=== PATIENT | female | born 1980 | race Caucasian/White ===

== ENCOUNTER 2018-08-02 13:24 | Inpatient (IN) | payer MEDICAID ==
[~2018-08-02] VITALS: Ht 154.9 cm; Wt 45.4 kg
[2018-08-02 13:36] VITALS: BP 129/68; PULSE 76
[2018-08-02 13:40] VITALS: BP 103/64; PULSE 76
[2018-08-02] MEDS ORDERED: URSO300C3 PO (13:44)
[2018-08-02] MEDS ORDERED: PREN-93 PO (13:44)
[2018-08-02] MEDS ORDERED: HYDR-3029 PO (13:44)
--- NOTE | 2018-08-02 16:56 | HP ---
Date/Time of Note Date/Time of Note DATE: 08/02/18 TIME: 16:54 OB - History Hx of Present Care: Good Care Ultrasounds: Normal mid trimester US Obstetrical Complications: None, Other Medical Complications: None Past Family/Social History * Past Medical, Surgical, Family and Obstetric Histories reviewed from chart. OB Admission Exam Vital Signs Vital Signs Vital Signs Date Temp Pulse Resp B/P (MAP) Pulse Ox O2 O2 Flow FiO2 Time Delivery Rate 08/02/18 98.4 76 103/64 Room Air 13:40 (77) Physical Exam Cervical Dilatation: 1cm Effacement: 75% Station: -1 Heart Rate: 140's Accelerations: Accelerations Present Decelerations: No Decelerations Varibility: Moderate Contractions on Admission: 6-10 Minutes Apart Last 72 hours Lab Results CBC & BMP 08/02/18 14:50 Liver Function Test 08/02/18 14:50 Alanine Aminotransferase (ALT/SGPT) 110 H Albumin 3.5 Alkaline Phosphatase 303 H Aspartate Amino Transf (AST/SGOT) 65 H Direct Bilirubin 0.00 Total Protein 7.0 OB Assessment/Plan Reason for admission: observation Other Assessment: PMH Denies PSH Denies Allergy NKDA Plan: Expectant Management Other plan: IV Hydration Steroids Close Observation BETO LLANOS M.D. Aug 02, 2018 16:56
[2018-08-02 17:30] VITALS: Ht 154.9 cm; Wt 45.4 kg
--- NOTE | 2018-08-02 17:36 | TRIAGE ---
OB Triage Datetime Report Generated by CPN: 08/02/2018 17:36 Datetime: 08/02/2018 16:47 Comments: Report to Phobe RN in labor and delivery Datetime: 08/02/2018 16:40 Labor Evaluation Frequency: 2-5 Monitor Mode: External Duration (sec)2399: 50-70 Quality: Mild Pattern: Normal: <= 5 Contractions in 10 Minutes Resting Tone [place]: Relaxed Heart Rate FHR Baseline Rate: 140 Monitor Mode: External US FHR Baseline Changes: No Baseline Change Variability: Moderate 6-25 bpm Accelerations: 15X15 Decelerations: None Category: Category I Pain Assessment Pain Scale: 0 Pain Presence: None/Denies Pain Type: N/A Pain Goal: 3 Datetime: 08/02/2018 16:36 Comments: Dr. Mishra at bedside to review strip, CMP, CBC, Uric Acid, UA. New order to admit to a ntepartum Datetime: 08/02/2018 16:03 Vaginal Exam Dilatation (cms): 0.0 Effacement (%): 50 Station: -3 Exam By: LHernandez Datetime: 08/02/2018 15:29 Labor Evaluation Frequency: 4-7 Monitor Mode: External Duration (sec)2399: 50-60 Quality: Mild Pattern: Normal: <= 5 Contractions in 10 Minutes Resting Tone [place]: Relaxed Heart Rate FHR Baseline Rate: 135 Monitor Mode: External US FHR Baseline Changes: No Baseline Change Variability: Moderate 6-25 bpm Accelerations: 15X15 Decelerations: None Category: Category I Pain Assessment Pain Scale: 0 Pain Presence: None/Denies Pain Type: N/A Pain Goal: 3 Datetime: 08/02/2018 15:00 Labor Evaluation Frequency: 2-8 Monitor Mode: External Duration (sec)2399: 50-70 Quality: Mild Pattern: Normal: <= 5 Contractions in 10 Minutes Resting Tone [place]: Relaxed Heart Rate FHR Baseline Rate: 140 Monitor Mode: External US FHR Baseline Changes: No Baseline Change Variability: Moderate 6-25 bpm Accelerations: 15X15 Decelerations: None Category: Category I Pain Assessment Pain Scale: 0 Pain Presence: None/Denies Pain Type: N/A Pain Goal: 3 Datetime: 08/02/2018 14:16 Labor Evaluation Frequency: 1-5 Monitor Mode: External Duration (sec)2399: 40-70 Quality: Mild Pattern: Normal: <= 5 Contractions in 10 Minutes Resting Tone [place]: Relaxed Heart Rate FHR Baseline Rate: 140 Monitor Mode: External US FHR Baseline Changes: No Baseline Change Variability: Moderate 6-25 bpm Accelerations: 15X15 Decelerations: None Category: Category I Pain Assessment Pain Scale: 0 Pain Presence: None/Denies Pain Type: N/A Pain Goal: 3 Datetime: 08/02/2018 14:04 Comments: U/S at bedside Datetime: 08/02/2018 13:31 Stage of : OB Triage Assessment Type: Triage EGA: 35.4 Maternal Assessment Level of Consciousness: Fully Conscious DTR's/Clonus: DTRs 2+; No Clonus Headache: Denies Blurred Vision: No Respiratory Effort: Unlabored; Regular Rhythm; Equal Expansion Breath Sounds, Left: Clear and Equal Breath Sounds, Right: Clear and Equal Nausea/Vomiting: Denies RUQ Epigastric Pain: Denies Lower Extremities Edema: None Upper Extremities Edema: None Facial Edema: None Fall Risk Assessment History of Falling: (0) No Secondary Diagnosis: (0) No Ambulatory Aid: (0) Bedrest/Nurse Assist IV Therapy: (0) No Gait: (0) Normal/Bedrest/Immobile Mental Status: (0) Oriented to Own Ability Fall Score: 0 Fall Risk Score Definition: No Risk: No action required Pain Assessment Pain Scale: 0 Pain Presence: None/Denies Pain Goal: 3 Datetime: 08/02/2018 13:29 Time of Arrival: 08/02/2018 13:25 Arrived By: Ambulatory Arrived From: Office Chief Complaint: Sent from clinic for Cholestasis Movement: Present Contractions: Denies/Absent Rupture of Membranes: Denies Vaginal Bleeding: None Vaginal Discharge: Denies Recent Sexual Intercouse: Denies Abdominal Trauma: Not Applicable Patient Complaints: None Initial Plan: NST, cbc, cmp, uric acid, 24 hr urine collection
[2018-08-02] MEDS: LACTATED RINGER'S 1,000 ML IV SCH ×2 (17:55→19:51)
[2018-08-02] MEDS: BETAMET NA PHOS/AC(6 MG/ML) 2 ML INJ SYG IM SCH (18:09)
[2018-08-02] MEDS ORDERED: NIFEdipine 10 MG CAP PO ONE (23:00)
[2018-08-02] MEDS: hydrOXYzine HCL 10 MG TAB PO SCH (23:11)
--- NOTE | 2018-08-03 00:53 | PN ---
Date/Time of Note Date/Time of Note DATE: 08/03/18 TIME: 00:31 OB Subjective Subjective Subjective Patient seen and examined. She states good movement. She denies nausea, vomiting, shortness of breath, chest pain, abdominal pain, headache, visual changes, vaginal bleeding or LOF. Risk factors: 1. Advanced maternal age 2. Cholestasis of 3. She had ultrasound at [facility] perinatology today and was noted abdominal circumference more than 97.7% 4. Multiple uterine leiomyoma, largest one 4.7 x 4.4 x 3.8 cm OB Objective Objective Objective General: Patient appears well, alert and oriented, NAD, appropriate mood and affect ABD: gravid, soft, non-tender. Back: No CVA tenderness (B/L) LE: Mild edema. No clubbing, cyanosis, edema, thigh or calf tenderness bilaterally FHT: 135 bpm , moderate variability with acceleration, no deceleration-category I Contractions: Occasional OB Assessment/Plan Other plan: 37 years old 1 with single intrauterine at 35 weeks and 4 days ( SABRINA of 09/02/2018) with AMA, cholestasis and threatened PTL. She was seen at the clinic for visit today, sent to triage for NST and repeat CMP for cholestasis. Fasting bile acid and CMP done on 07/29/2018, she had elevated AST and ALT, bile acid result is pending. During observation in triage was noted, has uterine contraction every 3-4 minutes. Her cervix is closed. Patient admitted for threatened labor. FHR: Reassuring. No sign of metabolic acidosis- Category I. Continuous EFM, toco. Dexamethasone for lung maturity per protocol ordered. Procardia 10 mg p.ox1 given. Currently she has no further ucs. Perinatology consult. MELISA PURI Aug 03, 2018 00:51
[2018-08-03] MEDS: LACTATED RINGER'S 1,000 ML IV SCH ×3 (02:26→17:46)
[2018-08-03] MEDS: hydrOXYzine HCL 10 MG TAB PO SCH ×2 (09:00→20:57)
[2018-08-03] MEDS: URSODIOL 300 MG CAP PO SCH ×3 (09:00→20:57)
[2018-08-03] MEDS: BETAMET NA PHOS/AC(6 MG/ML) 2 ML INJ SYG IM SCH (17:46)
--- NOTE | 2018-08-03 20:56 | QN ---
Documentation Comment Patient discussed with Dr. Garcia over the phone who has agreed with plan. She is recommended delivery at 36 weeks MELISA PURI Aug 03, 2018 20:56
[2018-08-04] MEDS: LACTATED RINGER'S 1,000 ML IV SCH ×4 (01:19→14:48)
[2018-08-04] MEDS ORDERED: OXYTOCIN 30 UNITS/LR 500 ML BAG IV ONE (07:00)
[2018-08-04] MEDS: hydrOXYzine HCL 10 MG TAB PO SCH (08:53)
[2018-08-04] MEDS: URSODIOL 300 MG CAP PO SCH ×2 (08:53→13:19)
[2018-08-04] MEDS ORDERED: CARBOPROST 250 MCG INJ IM PRN ×2 (13:00→21:00)
[2018-08-04] MEDS ORDERED: METHYLERGONOVINE 0.2 MG INJ IM PRN ×2 (13:00→21:00)
[2018-08-04] MEDS ORDERED: MISOPROSTOL 200 MCG TAB PR PRN ×2 (13:00→21:00)
[2018-08-04] MEDS ORDERED: OXYTOCIN 30 UNITS/LR 500 ML IV PRN ×2 (13:00→21:00)
[2018-08-04] MEDS ORDERED: CEFAZOLIN 2 GM/50 ML (PMX) 50 ML IVPB SCH (13:00)
--- NOTE | 2018-08-04 14:54 | PN ---
Date/Time of Note Date/Time of Note DATE: 08/04/18 TIME: 14:43 OB Subjective Subjective Subjective social worker assistant# [id number] for our today's discussion Patient seen and examined. She states good movement. She denies nausea, vomiting, shortness of breath, chest pain, abdominal pain, headache, visual changes, vaginal bleeding or LOF. Risk factors: 1. Advanced maternal age 2. Cholestasis of 3. She had ultrasound at [facility] perinatology today and was noted abdominal circumference more than 97.7% 4. Multiple uterine leiomyoma, largest one 4.7 x 4.4 x 3.8 cm 5. Breech presentation OB Objective Objective Objective General: Patient appears well, alert and oriented, NAD, appropriate mood and affect ABD: gravid, soft, non-tender. Back: No CVA tenderness (B/L) LE: Mild edema. No clubbing, cyanosis, edema, thigh or calf tenderness bilaterally FHT: Currently 140 bpm , moderate variability with acceleration, no deceleration-category I. There was multiple variable deceleration and few episode with no variability on reviewing strip Contractions: None OB Assessment/Plan Other plan: 37 years old 1 with single intrauterine at 35 weeks and 6 days with AMA, cholestasis with elevated LFT - FHR: Currently category I, however has on &off category II - Continuous EFM, toco - CBC, blood type and screen - Breech presentation in last us, Pino c/w transverse. Us performed, confirmed transverse presentation. The risk of delivery including but not limited to bleeding, infection, injury to other organs (bowel, bladder, ureter, vessels, nerves), injury to fetus, blood transfusion, blood transfusion related infection, risk of anesthesia, adhesion, needs for future , removal of uterus or any other indicated surgery was discussed with the patient and her family. She expressed understanding. All of her questions were answered. She signed the informed consent. PHYSICIAN'S VERIFICATION OF INFORMED CONSENT The patient was counseled regarding the procedure, its indications, risks, potential complications and alternatives and any questions were answered. Consent was obtained. PLANNED PROCEDURE/TREATMENT: delivery with possible using vacuum/forceps and any other indicated surgery PHYSICIAN'S VERIFICATION OF INFORMED CONSENT FOR BLOOD TRANSFUSION: There is a reasonable possibility that blood transfusion will be necessary as a result of the patient's procedure. I have discussed the following with the patient/patient's legal senior customer service representative: An explanation of the benefits and risks of the transfusion of blood or blood products and the possible alternatives. All questions have been answered to the patient's satisfaction. INFORMED CONSENT:The patient has been informed of: The nature of the proposed care, treatment, services, medications, interventions or procedures. Potential benefits, risks or side effects, including potential problems related to recuperation. The likelihood of achieving care treatment and service goals. Reasonable alternatives to the proposed care, treatment and service. The relevant risks, benefits and side effects related to alternatives, inclu ding the possible results of not receiving care, treatment and services. When indicated, any limitations on the confidentiality of information learned from or about the patient. If appropriate, the risks, benefits and alternatives of the drugs to be used for sedation/analgesia including moderate sedation. If appropriate, patient has been provided information on the risks, benefits and alternatives to the transfusion of blood and/or blood products. If appropriate, patient has been provided information regarding the [place] [employer] Blood Act. MELISA PURI Aug 04, 2018 14:53
[2018-08-04] MEDS ORDERED: CITRIC ACID/NA CITRATE 30 ML CUP PO ONE (15:20)
[2018-08-04] MEDS ORDERED: ONDANSETRON 4 MG INJ IV STA (15:23)
--- NOTE | 2018-08-04 15:43 | PREAC ---
Date/Time of Note Date/Time of Note DATE: 08/04/18 TIME: 15:42 Anesthesia Eval and Record Evaluation Time Pre-Procedure Interview DATE: 08/04/18 TIME: 15:42 Age 37 Sex female NPO: 8 hrs Preoperative diagnosis Cholestasis, Transverse Position Planned procedure Primary Past Medical History Past Medical History: Includes Heme: Anemia : : (1), Para: (0), Gestational age: (35) Surgery & Anesthesia Issues No known issue Meds Anticoagulation: No Beta Michael within 24 hr: No Reason Beta Michael not given: Pt. not on B-Michael Reported Medications Hydroxyzine Hcl* (Hydroxyzine Hcl*) 10 Mg Tablet, 10 MG PO BID, #40 TAB 08/02/18 Ursodiol* (Ursodiol*) 300 Mg Capsule, 300 MG PO TID, CAP 08/02/18 Vit No.124/Iron/FA ( Vitamin Tablet) 1 Each Tablet, 1 EACH PO, TAB 08/02/18 Current Medications Lactated Ringer's 1,000 ml @ 125 mls/hr Q8H IV Last administered on 08/04/18at 14:48; Admin Dose 125 MLS/HR; Start 08/02/18 at 16:46 Hydroxyzine HCl (Atarax) 10 mg BID PO Last administered on 08/04/18at 08:53; Ad min Dose 10 MG; Start 08/02/18 at 23:00 Ursodiol (Actigall) 300 mg TID PO Last administered on 08/04/18at 13:19; Admin Dose 300 MG; Start 08/03/18 at 09:00 Cefazolin Sodium/ Dextrose 50 ml @ 100 mls/hr ONCE IVPB ; Start 08/04/18 at 13:00 Oxytocin/Lactated Ringer's 500 ml @ 0 mls/hr ONCE PRN IV .VAGINAL BLEEDING; Start 08/04/18 at 13:00 Methylergonovine Maleate (Methergine) 0.2 mg ONCE PRN IM .VAGINAL BLEEDING; Start 08/04/18 at 13:00 Carboprost Tromethamine (Hemabate) 250 mcg ONCE PRN IM .VAGINAL BLEEDING; Start 08/04/18 at 13:00 Misoprostol (Cytotec) 1,000 mcg ONCE PRN NM .VAGINAL BLEEDING; Start 08/04/18 at 13:00 Oxytocin/Lactated Ringer's 500 ml @ 125 mls/hr Q4H IV ; Start 08/04/18 at 17:30 Meds reviewed: Yes Allergies Coded Allergies: No Known Allergy (Unverified , 08/02/18) Allergies Reviewed: Yes Labs/Studies Labs Reviewed: Reviewed by anesthesiologist Result Diagram: 08/04/18 1415 08/02/18 1450 Laboratory Tests 08/04/18 14:15 test: Positive Studies: ECG (n/a), CXR (n/a) Pre-procedure Exam Last vitals Vital Signs Date Temp Pulse Resp B/P (MAP) Pulse Ox O2 O2 Flow FiO2 Time Delivery Rate 08/02/18 98.4 76 103/64 Room Air 13:40 (77) Airway: Adequate mouth opening, Adequate thyromental dist Mallampati: Mallampati II Teeth: Normal Lung: Normal Heart: Normal ASA Physical Status ASA physical status: 2 Emergency: None Planned Anesthetic Neuraxial: Spinal Planned Pain Management Sub-arachniod narcotics, Parenteral pain med Pre-operative Attestations Prior to commencing anesthesia and surgery, the patient was re-evaluated, there was verification of: *The patient's identity *The results of appropriate recent lab work and preoperative vital signs *The above evaluation not changing prior to induction *Anesthetic plan, risk benefits, alternative and complications discussed with patient/family; questions answered; patient/family understands, accepts and wishes to proceed. HIRO MOLINA MD Aug 04, 2018 15:43
[2018-08-04] MEDS ORDERED: morphine SULFATE/PF (10 MG/10 ML) INJ ONE (15:45)
[2018-08-04] MEDS ORDERED: OXYTOCIN 10 UNIT INJ ONE (15:45)
[2018-08-04] MEDS ORDERED: PHENYLephrine (100 MCG/ML) 10ML SYG ONE (15:45)
[2018-08-04] MEDS ORDERED: CEFAZOLIN 1 GM INJ ONE (16:19)
[2018-08-04] MEDS ORDERED: KETOROLAC 30 MG INJ ONE (16:19)
[2018-08-04] MEDS ORDERED: DEXAMETHASONE 4 MG/ML 1 ML INJ ONE (16:19)
[2018-08-04] MEDS ORDERED: METOCLOPRAMIDE 10 MG INJ ONE (16:19)
--- NOTE | 2018-08-04 16:50 | PAC ---
Date/Time of Note Date/Time of Note DATE: 08/04/18 TIME: 16:49 Post-Anesthesia Notes Post-Anesthesia Note Last documented vital signs Vital Signs Date Temp Pulse Resp B/P (MAP) Pulse Ox O2 O2 Flow FiO2 Time Delivery Rate 08/04/18 98.4 76 16 103/64 98 Room Air 16:50 (77) Activity: WNL Respiratory function: WNL Cardiovascular function: WNL Mental status: Baseline Pain reasonably controlled: Yes Hydration appropriate: Yes Nausea/Vomiting absent: Yes HIRO MOLINA MD Aug 04, 2018 16:50
[2018-08-04] MEDS ORDERED: HYDROCODONE/APAP (5/325) TAB PO PRN (17:00)
[2018-08-04] MEDS ORDERED: HYDROmorphONE 0.5 MG/0.5 ML SYG IV PRN ×2 (17:00)
[2018-08-04] MEDS ORDERED: DIPHENHYDRAMINE 50 MG INJ IV PRN (17:00)
[2018-08-04] MEDS ORDERED: ACETAMINOPHEN 500 MG TAB PO PRN (17:00)
[2018-08-04] MEDS ORDERED: NALOXONE (0.4 MG/ML) INJ IV PRN (17:00)
[2018-08-04] MEDS ORDERED: KETOROLAC 30 MG INJ IV PRN (17:00)
[2018-08-04] MEDS ORDERED: morphine 2 MG INJ IV PRN ×2 (17:00)
[2018-08-04] MEDS ORDERED: ONDANSETRON 4 MG INJ IV PRN (17:00)
[2018-08-04] MEDS ORDERED: NALBUPHINE HCL (10 MG/1 ML) INJ IV PRN (17:00)
--- NOTE | 2018-08-04 17:02 | OPR ---
Operative Report Planned Procedure Procedure date Aug 04, 2018 Procedure(s) Primary low transverse delivery Performed by see signature line Landing Signal Officer: JORGE L OBREGON MD Anesthesiologist: HIRO MOLINA MD Pre-procedure diagnosis 37 years old 1 with uterine leiomyoma, cholestasis, elevated LFT, transverse presentation and NRFHR at 35 weeks and 6 days [id number] Anesthesia Type: [id number] spinal Post-Procedure Post-procedure diagnosis 37 years old 1 with 3x4 cm uterine leiomyoma at left cornua, cholestasis, elevated LFT, breech presentation and NRFHR at 35 weeks and 6 days Findings 1. Normal uterus except there was a 3 x 4 cm uterine leiomyoma at the left cornua. Normal fallopian tubes and ovaries 2. Viable male in double footling breech presentation. 4 at one minute and 8 in 5 minutes and 9 at 10 minutes. Weight: 3125 g - 6 pound 14 ounces. Time of delivery: 16:15 3. Placenta with three vessel cord 4. Amniotic fluid - thin meconium Estimated Blood Loss: 500 - 600 mls Specimen(s) none Grafts/Implant(s) none Complication(s) none Pt Condition post procedure: stable Disposition: PACU Procedure Description INDICATION AND HISTORY: A 37 years old 1 with uterine leiomyoma, cholestasis, elevated LFT, transverse presentation and NRFHR at 35 weeks and 6 days. The risk of delivery including but not limited to bleeding, infection, injury to other organs (bowel, bladder, ureter, vessels, nerves), injury to fetus, blood transfusion, blood transfusion related infection, risk of anesthesia, adhesion, needs for future , removal of uterus or any other indicated surgery was discussed with the patient and her family. She expressed understanding. All of her questions were answered. She signed the informed consent. DESCRIPTION OF OPERATION: The patient was taken to the operating room, where she was identified and the procedure was verified. The patient received two gram of Ancef 30 minutes prior to surgery. Spinal anesthesia was placed. The patient placed in the dorsal supine position with a left tilt. The heart rate was 130 bpm. The patient was then prepped and draped in the normal sterile fashion. A Pfannenstiel skin incision was made and carried down to the fascia with knife. The fascia was incised in the midline and the fascial incision was carried laterally with knife. The superior portion of the fascial incision was then grasped with Waqas clamps and tented up and dissected off the underlying rectus muscle with sharp dissection. The lower portion of the fascial incision was then made in a similar fashion. The rectus muscle was and the peritoneum was entered. The peritoneal incision was then stretched and an Nilson retractor was inserted. Then, an incision was made in the lower uterine segment in a transverse fashion with a knife and extended bluntly. The was delivered atraumatically in double footling breech presentation with the above findings. The umbilical cord was clamped and cut. The neonatology resuscitation team was present and the baby was handed to them. A cord blood sample was obtained for further evaluation. The placenta and membrane, which appeared normal were Removed. The uterus was exteriorized and cleared of all clot and debris. The uterus was then closed in a two layer fashion with 0- Monocryl. At the time of closure, hemostasis was noted. The gutters were irrigated. The peritoneum was reapproximated with 3-0 Vicryl. The muscle was reapproximated with 3-0 Vicryl. The fascia was approximated with 0-Vicryl in a running fashion. The subcutaneous tissue was re approximated with 3-0 vicryl. The skin was closed with 4-0 Monocryl. All instruments, sponges and needle counts were correct x3. The patient tolerated the procedure well. She transferred to the recovery room in stable condition. MELISA PURI Aug 04, 2018 17:02
[2018-08-04] MEDS: OXYTOCIN 30 UNITS/LR 500 ML IV SCH ×2 (17:25→21:30)
[2018-08-04] MEDS ORDERED: MAGNESIUM HYDROXIDE 30ML CUP PO PRN (17:30)
[2018-08-04 20:35] VITALS: BP 135/73; PULSE 66; RESP 18
[2018-08-04] MEDS: DEXTROSE 5%-LR 1,000 ML IV SCH (20:54)
[2018-08-04] MEDS ORDERED: OXYTOCIN 30 UNITS/LR 500 ML IV SCH (20:54)
[2018-08-04] MEDS ORDERED: METHYLERGONOVINE 0.2 MG TAB PO PRN (21:00)
[2018-08-04] MEDS: SENNA/DOCUSATE NA (8.6MG/50MG) TAB PO SCH (21:00)
[2018-08-04] MEDS ORDERED: LANOLIN HPA 1 PKT TOP PRN (21:00)
[2018-08-04 21:05] VITALS: BP 130/63; PULSE 68; RESP 18
[2018-08-04] MEDS: IBUPROFEN 800 MG TAB PO SCH (22:00)
[2018-08-05] VITALS: BP_SYST 115; BP_SYST 118; BP_DIAS 63; BP_DIAS 72; PULSE 68
[2018-08-05] MEDS: OXYTOCIN 30 UNITS/LR 500 ML IV SCH ×6 (03:32→21:30)
[2018-08-05 04:30] VITALS: BP 111/58; PULSE 68; RESP 18
[2018-08-05] MEDS: DEXTROSE 5%-LR 1,000 ML IV SCH ×3 (04:54→20:54)
[2018-08-05] MEDS: IBUPROFEN 800 MG TAB PO SCH ×2 (06:00→16:02)
[2018-08-05 08:00] VITALS: BP 101/52; PULSE 76; RESP 18
[2018-08-05] MEDS: SENNA/DOCUSATE NA (8.6MG/50MG) TAB PO SCH ×2 (09:22→21:55)
[2018-08-05] MEDS ORDERED: DIPHTH/TET/ACEL PERTUSS (ADULT) 0.5 ML VIAL IM* ONE (11:00)
[2018-08-05] MEDS ORDERED: HYDROCODONE/APAP (5/325) TAB NGT PRN (11:00)
[2018-08-05 11:45] VITALS: BP 110/55; PULSE 80; RESP 18
[2018-08-05 15:55] VITALS: BP 113/55; PULSE 71; RESP 18
[2018-08-05] MEDS: HYDROCODONE/APAP (5/325) TAB GTB SCH (16:02)
[2018-08-05 20:15] VITALS: BP 103/58; PULSE 86; RESP 19
[2018-08-05] MEDS: URSODIOL 300 MG CAP PO SCH (21:55)
[2018-08-06] MEDS: IBUPROFEN 800 MG TAB PO SCH ×4 (00:01→22:20)
[2018-08-06] MEDS: HYDROCODONE/APAP (5/325) TAB GTB SCH ×4 (00:01→22:20)
[2018-08-06 03:55] VITALS: BP 101/49; PULSE 81; RESP 19
[2018-08-06 08:15] VITALS: BP 97/61; PULSE 96; RESP 18
[2018-08-06] MEDS: URSODIOL 300 MG CAP PO SCH ×2 (08:52→21:35)
[2018-08-06] MEDS: SENNA/DOCUSATE NA (8.6MG/50MG) TAB PO SCH ×2 (08:52→21:35)
[2018-08-06] MEDS ORDERED: MEASLES,MUMPS,RUBELLA VACCINE INJ SC* ONE (13:00)
--- NOTE | 2018-08-06 13:02 | QN ---
Documentation Comment POD#2 is stable afebrile tolerates diet No VB +flatus +Voids VS stable Gen NAD Abd soft NT mildly distended Incision intact Gentalia No blood at perineum -->Discharge Home tomorrow --->ambulation BETO LLANOS M.D. Aug 06, 2018 13:02
[2018-08-06 16:21] VITALS: BP 119/58; PULSE 76; RESP 18
[2018-08-07 04:00] VITALS: BP 117/68; PULSE 72; RESP 20
[2018-08-07] MEDS: HYDROCODONE/APAP (5/325) TAB GTB SCH (05:47)
[2018-08-07] MEDS: IBUPROFEN 800 MG TAB PO SCH (05:47)
[2018-08-07 08:30] VITALS: BP 96/53; PULSE 57; RESP 18
[2018-08-07] MEDS ORDERED: MEASLES,MUMPS,RUBELLA VACCINE INJ SC* ONE (09:00)
[2018-08-07] MEDS ORDERED: DIPHTH/TET/ACEL PERTUSS (ADULT) 0.5 ML VIAL IM* ONE (09:00)
[2018-08-07] MEDS: URSODIOL 300 MG CAP PO SCH (11:49)
[2018-08-07] MEDS: SENNA/DOCUSATE NA (8.6MG/50MG) TAB PO SCH (11:49)
--- NOTE | 2018-08-07 13:19 | QN ---
Documentation Comment POD#3 is stable afebrile tolerates diet No VB +BM +Voids VS stable Gen NAD Abd soft NT ND Incision intact Gentalia No blood at perineum -->Discharge plan -->Ambulation -->Precautions discussed BETO LLANOS M.D. Aug 07, 2018 13:19
--- NOTE | 2018-08-07 13:20 | DS ---
Date/Time of Note Date/Time of Note DATE: 08/07/18 TIME: 13:19 Discharge Summary Admission/Discharge Info Admit Date/Time Aug 02, 2018 at 16:50 Discharge Date/Time 08/07/2018 Discharge Diagnosis Patient Condition: Good Hospital Course uneventful Home Meds Reported Medications Ursodiol* (Ursodiol*) 300 Mg Capsule, 300 MG PO TID, CAP 08/02/18 Vit No.124/Iron/FA ( Vitamin Tablet) 1 Each Tablet, 1 EACH PO, TAB 08/02/18 Discontinued Reported Medications Hydroxyzine Hcl* (Hydroxyzine Hcl*) 10 Mg Tablet, 10 MG PO BID, #40 TAB 08/02/18 Primary Care Provider Care Physician No Primary BETO LLANOS M.D. Aug 07, 2018 13:20
--- NOTE | 2018-08-08 14:42 | DELSUM ---
Delivery Summary A-C Datetime Report Generated by CPN: 08/08/2018 14:42 DELIVERY PERSONNEL Liquor Establishment Manager: Silvia Casillas MATERNAL INFORMATION Delivery Anesthesia: Spinal Medications in Delivery: see anesthesia records Delivery QBL (ml): 600 Placenta Cultured: No Maternal Complications: Other Other Maternal Complications: Cholestasis, Multiple myomas, Advanced maternal age LABOR SUMMARY EDC: 09/02/2018 00:00 No. Babies in Womb: 1 Attempted: No Labor Anesthesia: None LABOR INFORMATION Reason for Induction: Not Applicable Onset of Labor: 08/02/2018 16:55 Oxytocin: N/A Group B Beta Strep: Not Done Antibiotics # of Doses: 1 Antibiotics Time of Last Dose: 08/04/2018 15:45 Steroids Given: Full Course Reason Steroids Not Administered: Not Applicable MEMBRANES Membranes Rupture Method: Artificial Rupture of Membranes: 08/04/2018 16:14 Length of Rupture (hr): 0.02 Amniotic Fluid Color: Light Meconium Amniotic Fluid Amount: Moderate Amniotic Fluid Odor: None STAGES OF LABOR Stage 3 hr: 0 Stage 3 min: 5 Total Time in Labor hr: 47 Total Time in Labor min: 25 CSECTION DELIVERY Primary Indication: Other Other Primary Indication: Cholestasis Secondary Indication: Nonreassuring Stat CSection Urgency: Non Elective CSection Incidence: Primary Labor: No Labor Elective: N/A CSection Incision: Lower Uterine Transverse BABY A INFORMATION Delivery Date/Time: 08/04/2018 16:15 Method of Delivery: Born in Route : No : N/A Forceps: N/A Vacuum Extraction: N/A Shoulder Dystocia : No SHOULDER DYSTOCIA BABY A Delivery Date/Time: 08/04/2018 16:15 PRESENTATION/POSITION BABY A Presentation: Breech Cephalic Presentation: N/A Breech Presentation: Complete PLACENTA INFORMATION BABY A Placenta Delivery Time : 08/04/2018 16:20 Placenta Method of Delivery: Manual Removal Placenta Status: Delivered SCORES BABY A Heart Rate 1 min: Slow, Below 100 bpm Resp Effort 1 min: Slow, Irregular Reflex Irritability 1 min: Grimace Muscle Tone 1 min: Some Flexion of Extrem Color 1 min: Blue/Pale Resuscitation Effort 1 min: Tactile Stimulation; PPV/NCPAP SCORE 1 MIN: 4 Heart Rate 5 min: >100 bpm Resp Effort 5 min: Good Cry Reflex Irritability 5 min: Cough/Sneeze/Pulls Away Muscle Tone 5 min: Active Motion Color 5 min: Blue/Pale Resuscitation Effort 5 min: Tactile Stimulation; PPV/NCPAP SCORE 5 MIN: 8 Heart Rate 10 min: >100 bpm Resp Effort 10 min: Good Cry Reflex Irritability 10 min: Cough/Sneeze/Pulls Away Muscle Tone 10 min: Active Motion Color 10 min: Body [place], Extremit Blue Resuscitation Effort 10 min: Tactile Stimulation SCORE 10 MIN: 9 INFANT INFORMATION BABY A Gestational Age at Delivery: 35.6 Gestational Status: Late - 34- 36.6 Weeks Infant Outcome : Liveborn Infant Condition : Stable Sex: Male IDENTIFICATION/MEDS BABY A ID Band Number: [id number] ID Band Location: Right Leg; Left Arm Sensor Applied: Yes Sensor Number: [id number] Sensor Location : Cord Clamp Vitamin K Given : Not Given Erythromycin Given: Not Given WEIGHT/LENGTH BABY A Infant Birthweight (gm): 3125 Infant Weight (lb): 6 Infant Weight (oz): 14 Length (in): 19.00 Infant Length (cm): 48.26 CORD INFORMATION BABY A No. Cord Vessels: 3 Nuchal Cord : N/A Cord Blood Taken: Yes Banking/Donate Info: NO Suction: Mouth; Nose ASSESSMENT BABY A Infant Complications: Meconium Physical Findings at Delivery: Within Normal Limits Infant Respirations: Appears Normal Plane Captain/ALS Called : Yes Infant Care By: NICU TEAM
--- NOTE | 2018-08-08 14:43 | DELSUM ---
Delivery Summary A-C Datetime Report Generated by CPN: 08/08/2018 14:43 DELIVERY PERSONNEL [employer] Commissioner: Silvia Casillas MATERNAL INFORMATION Delivery Anesthesia: Spinal Medications in Delivery: see anesthesia records Delivery QBL (ml): 600 Placenta Cultured: No Maternal Complications: Other Other Maternal Complications: Cholestasis, Multiple myomas, Advanced maternal age LABOR SUMMARY EDC: 09/02/2018 00:00 No. Babies in Womb: 1 Attempted: No Labor Anesthesia: None LABOR INFORMATION Reason for Induction: Not Applicable Onset of Labor: 08/02/2018 16:55 Oxytocin: N/A Group B Beta Strep: Not Done Antibiotics # of Doses: 1 Antibiotics Time of Last Dose: 08/04/2018 15:45 Steroids Given: Full Course Reason Steroids Not Administered: Not Applicable MEMBRANES Membranes Rupture Method: Artificial Rupture of Membranes: 08/04/2018 16:14 Length of Rupture (hr): 0.02 Amniotic Fluid Color: Light Meconium Amniotic Fluid Amount: Moderate Amniotic Fluid Odor: None STAGES OF LABOR Stage 3 hr: 0 Stage 3 min: 5 Total Time in Labor hr: 47 Total Time in Labor min: 25 CSECTION DELIVERY Primary Indication: Other Other Primary Indication: Cholestasis Secondary Indication: Nonreassuring Stat CSection Urgency: Non Elective CSection Incidence: Primary Labor: No Labor Elective: N/A CSection Incision: Lower Uterine Transverse BABY A INFORMATION Delivery Date/Time: 08/04/2018 16:15 Method of Delivery: Born in Route : No : N/A Forceps: N/A Vacuum Extraction: N/A Shoulder Dystocia : No SHOULDER DYSTOCIA BABY A Delivery Date/Time: 08/04/2018 16:15 PRESENTATION/POSITION BABY A Presentation: Breech Cephalic Presentation: N/A Breech Presentation: Complete PLACENTA INFORMATION BABY A Placenta Delivery Time : 08/04/2018 16:20 Placenta Method of Delivery: Manual Removal Placenta Status: Delivered SCORES BABY A Heart Rate 1 min: Slow, Below 100 bpm Resp Effort 1 min: Slow, Irregular Reflex Irritability 1 min: Grimace Muscle Tone 1 min: Some Flexion of Extrem Color 1 min: Blue/Pale Resuscitation Effort 1 min: Tactile Stimulation; PPV/NCPAP SCORE 1 MIN: 4 Heart Rate 5 min: >100 bpm Resp Effort 5 min: Good Cry Reflex Irritability 5 min: Cough/Sneeze/Pulls Away Muscle Tone 5 min: Active Motion Color 5 min: Blue/Pale Resuscitation Effort 5 min: Tactile Stimulation; PPV/NCPAP SCORE 5 MIN: 8 Heart Rate 10 min: >100 bpm Resp Effort 10 min: Good Cry Reflex Irritability 10 min: Cough/Sneeze/Pulls Away Muscle Tone 10 min: Active Motion Color 10 min: Body [place], Extremit Blue Resuscitation Effort 10 min: Tactile Stimulation SCORE 10 MIN: 9 INFANT INFORMATION BABY A Gestational Age at Delivery: 35.6 Gestational Status: Late - 34- 36.6 Weeks Infant Outcome : Liveborn Infant Condition : Stable Sex: Male IDENTIFICATION/MEDS BABY A ID Band Number: [id number] ID Band Location: Right Leg; Left Arm Sensor Applied: Yes Sensor Number: [id number] Sensor Location : Cord Clamp Vitamin K Given : Not Given Erythromycin Given: Not Given WEIGHT/LENGTH BABY A Infant Birthweight (gm): 3125 Infant Weight (lb): 6 Infant Weight (oz): 14 Length (in): 19.00 Infant Length (cm): 48.26 CORD INFORMATION BABY A No. Cord Vessels: 3 Nuchal Cord : N/A Cord Blood Taken: Yes Banking/Donate Info: NO Suction: Mouth; Nose ASSESSMENT BABY A Infant Complications: Meconium Physical Findings at Delivery: Within Normal Limits Infant Respirations: Appears Normal Practice Or Student Teacher/ALS Called : Yes Infant Care By: NICU TEAM
== END 2018-08-07 14:12 | disposition home or self-care (01) | DRG 786 ==
LOC: OBT 13:24 → L-D 13:25 → OBT 16:50 → L-D 17:00 → PP1 21:13 → L-D 08-04 15:06 → PP1 08-04 20:32
PROVIDERS: ADMIT Obstetrics & Gynecology; ATTEND Obstetrics & Gynecology
PROC: 10D00Z1 Extraction of Products of Conception, Low, Open Approach (ICD-10-PCS; principal; 2018-08-04 16:00)
DX: O26.62 Liver and biliary tract disorders in childbirth (principal); K83.1 Obstruction of bile duct; O32.8XX0 Maternal care for other malpresentation of fetus, not applicable or unspecified; O76 Abnormality in fetal heart rate and rhythm complicating labor and delivery; O34.13 Maternal care for benign tumor of corpus uteri, third trimester; D25.9 Leiomyoma of uterus, unspecified; Z3A.35 35 weeks gestation of pregnancy; Z37.0 Single live birth
CPT/HCPCS: 76815; 76818; 80053; 81003; 82575; 84156; 84560; 85025; 85610; 85730; 86592; 86850; 86900; 86901; 90686; 99464; G0463; J0690; J0702; J1100; J1885; J2274; J2370; J2405; J2590; J2765; J7120; J7121